=== PATIENT | male | born 1965 | race African-American/Black ===

== ENCOUNTER 2024-03-26 21:52 | Emergency (ER) | payer SELFPAY ==
[~2024-03-26] VITALS: Ht 180.3 cm; Wt 78.0 kg
[2024-03-26 21:56] VITALS: TEMP 98.8; O2SAT 100
[2024-03-26 22:48] VITALS: BP 129/94; PULSE 83; RESP 16
[2024-03-26] MEDS: KETOROLAC 30MG/ML VIAL IM ONE (22:48)
[2024-03-26 23:42] LABS: BASOPHILS % 2.4 % (0.0-2.0); DIFFERENTIAL COMMENT 0; EOSINOPHILS % 1.7 % (0.0-5.0); HEMATOCRIT. 29.7 % (42.0-52.0); HEMOGLOBIN. 10.4 g/dL (14.0-18.0); LYMPHOCYTES % 23.2 % (20.0-50.0); MEAN PLATELET VOLUME 9.4 fl (7.4-10.4); MONOCYTES % 9.1 % (2.0-8.0); NEUTROPHILS % 63.6 % (40.0-76.0); PLATELET 279 x1000/uL (130-400); RED BLOOD CELL COUNT 3.58 mill/uL (4.7-6.1); RED CELL DISTRIBUTION WIDTH 15.6 % (11.6-14.6); WHITE BLOOD COUNT 10.9 x1000/uL (4.5-11.0)
[2024-03-27 00:33] LABS: CHLORIDE 104 mEq/L (98-107); POTASSIUM 4.3 mEq/L (3.5-5.1); SODIUM 137 mEq/L (136-145)
[2024-03-27 00:34] LABS: CALCIUM 8.8 mg/dL (8.7-10.4); CARBON DIOXIDE 27 mEq/L (21-32)
[2024-03-27 00:39] LABS: CREATININE 1.3 mg/dL (0.6-1.3); GLUCOSE 73 mg/dL (70-105); UREA NITROGEN BLOOD 16 mg/dL (9-23)
[2024-03-27 00:56] LABS: TROPONIN I HIGH SENSITIVITY < 4 ng/L (3.0-53)
== END 2024-03-27 01:58 | disposition home or self-care (01) ==
LOC: ER 21:52
DX: F15.10 Other stimulant abuse, uncomplicated (principal); R07.89 Other chest pain; E11.9 Type 2 diabetes mellitus without complications
CPT/HCPCS: 80048; 85025; 84484; 36415; 71045; 93005; 96372; 99285; J1885; Z7610